=== PATIENT | female | born 1970 | race Caucasian/White ===

== ENCOUNTER 2018-07-22 10:18 | Day surgery (SDC) | payer BC ==
[2018-07-19 15:57] VITALS: BMI 34.9
[~2018-07-22 10:18] MED LIST: LACTATED RINGERS 1,000 ML IV SCH; LIDOCAINE 1% 20 ML VIAL (10MG/ML) FOR IV START INTRADERMA PRN
[2018-07-22 11:40] VITALS: TEMP 97.8
[2018-07-22] MEDS ORDERED: PROPOFOL 10 MG/ML 20 ML VIAL IV ONE (12:16)
[2018-07-22] MEDS ORDERED: LIDOCAINE 1% INJ 10MG/ML (20 ML MDV) ONE (12:16)
--- NOTE | 2018-07-22 12:35 | P.PCN ---
Date of Procedure: 07/22/18 Procedure(s) Performed: BRIEF HISTORY: Patient is a 48-year-old pleasant female, scheduled for an elective colonoscopy as a part of screening for colorectal neoplasia. PROCEDURE PERFORMED: Colonoscopy with snare polypectomy. PREOPERATIVE DIAGNOSIS: Screening for colon cancer. IV sedation per Anesthesia. PROCEDURE: After informed consent was obtained, the patient, was brought into the endoscopy unit. IV sedation was administered by Anesthesia under continuous monitoring. Digital rectal examination was normal. Initially the Olympus CF- 160 flexible video colonoscope was then inserted in the rectum, gradually advanced into the cecum without any difficulty. Careful examination was performed as the scope was gradually being withdrawn. Ileocecal valve and the appendiceal orifice were visualized and appeared normal. Prep was excellent. Mucosa of the cecum, ascending colon, transverse colon, descending colon appeared normal. In the sigmoid colon there was a 1 cm pedunculated polyp removed by snare polypectomy. The rest of the sigmoid colon, and rectum appeared normal. Scattered sigmoid diverticulosis seen. Retroflexion was performed in the rectum and no lesions were seen. The patient tolerated the procedure well. IMPRESSION: 1 cm pedunculated sigmoid colon polyp status post polypectomy Scattered sigmoid diverticulosis RECOMMENDATIONS: Findings of this examination were discussed with the patient as well his family she was advised to follow with the biopsy results. If the biopsy shows an adenoma she can have a repeat colonoscopy in 3 years..
[2018-07-22 13:10] VITALS: BP 115/76; PULSE 80; RESP 18
== END 2018-07-22 13:25 | disposition home or self-care (01) ==
LOC: ORWHC2ENDO 10:18
PROVIDERS: ATTEND Internal Medicine Gastroenterology
DX: Z12.11 Encounter for screening for malignant neoplasm of colon (principal); D12.5 Benign neoplasm of sigmoid colon; K57.30 Diverticulosis of large intestine without perforation or abscess without bleeding; J45.909 Unspecified asthma, uncomplicated; Z79.51 Long term (current) use of inhaled steroids; Z79.899 Other long term (current) drug therapy; Z91.040 Latex allergy status; Z91.09 Other allergy status, other than to drugs and biological substances
CPT/HCPCS: 81025; 88305; 45385; J2001; J2704

== ENCOUNTER → 2018-08-09 | Outpatient (CLI) | payer BC ==
[2018-08-09 13:40] LABS: Basophils % (A) 1 %; Eosinophils # (A) 0.2 k/uL (0-0.7); Eosinophils % (A) 3 %; HGB 11.2 gm/dL (11.4-16.0); Hypochromasia Marked; Lymphocytes # (A) 2.2 k/uL (1.0-4.8); Lymphocytes % (A) 31 %; MCH 25.6 pg (25.0-35.0); MCHC 30.2 g/dL (31.0-37.0); MCV 84.7 fL (80.0-100.0); Mean Platelet Volume 6.6; Monocytes # (A) 0.4 k/uL (0-1.0); Monocytes % (A) 6 %; Neutrophils # (A) 4.1 k/uL (1.3-7.7); Neutrophils % (A) 57 %; Platelet Count 294 k/uL (150-450); RBC 4.37 m/uL (3.80-5.40); RDW 14.7 % (11.5-15.5); WBC 7.1 k/uL (3.8-10.6)
== END | disposition home or self-care (01) ==
LOC: LABPAT 12:48
PROVIDERS: ATTEND Obstetrics & Gynecology Obstetrics
DX: Z01.812 Encounter for preprocedural laboratory examination (principal); N92.0 Excessive and frequent menstruation with regular cycle
CPT/HCPCS: 36415; 85025

== ENCOUNTER → 2018-08-16 | Day surgery (SDC) | payer BC ==
[2018-08-10 09:58] VITALS: BMI 34.3
[~2018-08-16] MED LIST changes: +DEXAMETHASONE SOD PHOS (MDV) 100 MG/10 ML VIAL IVP ONE; +KETOROLAC 30 MG/ML 1 ML VIAL ONE; +LACTATED RINGERS 1,000 ML IV ONE; -LACTATED RINGERS 1,000 ML IV SCH; +LIDOCAINE 1% 20 ML VIAL (10MG/ML) FOR IV START INTRADERMA ONE; -LIDOCAINE 1% 20 ML VIAL (10MG/ML) FOR IV START INTRADERMA PRN; +LIDOCAINE 1% INJ 10MG/ML (20 ML MDV) ONE; +MIDAZOLAM 2 MG/2 ML VIAL ONE; +ONDANSETRON 4 MG/2 ML VIAL IVP ONE; +PROPOFOL 10 MG/ML 20 ML VIAL IV ONE; +Pre Op ABX Message 1 EACH MISC MISCELLANE ONE; +SILVER NITRATE APPLICATOR 1 EACH STICK..EA. TOPICAL ONE; +fentaNYL (PF) 50 MCG/ML 2 ML AMP ONE
--- NOTE | 2018-08-16 11:05 | P.OP ---
Date of Procedure: 08/16/18 Preoperative Diagnosis: Heavy menstrual bleeding Postoperative Diagnosis: Same Procedure(s) Performed: Dilation and curettage, hysteroscopy, endometrial ablation with NovaSure Anesthesia: MAC Surgeon: Rochelle Bloom Estimated Blood Loss (ml): 5 IV fluids (ml): 600 Urine output (ml): 75 Pathology: other (Endometrial curettings) Condition: stable Disposition: PACU Indications for Procedure: Heavy menstrual bleeding with failed medical management. Operative Findings: Proliferative endometrium Description of Procedure: Patient is seen in the preoperative area and informed consent is obtained. Risks were reviewed including but not limited to infection, bleeding, damage to pelvic organs, uterine perforation. Patient states understanding and wished to proceed. Patient was taken to the operating suite where general anesthesia was obtained without difficulty by the anesthesia department. She was prepped and draped in normal sterile fashion in the dorsal lithotomy position. Latex free catheter was then used to drain the bladder clear yellow urine. A weighted speculum was placed in the posterior vaginal vault and anterior lip of the cervix is visualized grasped with a single-tooth tenaculum. The endocervical canal was then dilated and hysteroscope was placed through the cervix and toward the endometrial cavity the above-noted findings were visualized. A sharp curettage was then performed after the hysteroscope was removed and the specimen sent to pathology for analysis. The NovaSure device was then opened and set to the uterine measurements a length of 4.50 with a 4.3 a power of 106 time of 84 seconds. The cycle was completed after the cavity assessment was passed. Afterwards the NovaSure was removed without difficulty and the single-tooth tenaculum was taken off of the anterior lip of the cervix. Hemostasis was appreciated. All instruments were removed from the patient's vaginal vault Patient tolerated procedure well and all counts are correct 2, patient was taken the recovery room awake in stable condition
[2018-08-16 11:16] VITALS: RESP 16; TEMP 97.4
[2018-08-16] MEDS: HYDROmorphone 1 MG/ML 1 ML SYRINGE IVP ONE ×2 (11:50→11:55)
[2018-08-16 12:19] VITALS: PULSE 71
[2018-08-16 13:25] VITALS: BP 135/86
== END | disposition home or self-care (01) ==
LOC: OR 09:09
PROVIDERS: ATTEND Obstetrics & Gynecology Obstetrics
DX: N84.1 Polyp of cervix uteri (principal); J45.909 Unspecified asthma, uncomplicated; Z79.51 Long term (current) use of inhaled steroids; Z79.899 Other long term (current) drug therapy; Z91.040 Latex allergy status
CPT/HCPCS: 81025; 88305; 58563; J2250; J2405; J2001; J3010; J1885; J1170; J1100; J2704

== ENCOUNTER → 2019-06-06 | Outpatient (CLI) | payer BC ==
--- NOTE | 2019-06-08 12:23 | MM ---
Reason for exam: screening (asymptomatic). History: Took hormonal contraceptives for 10 years. Physical Findings: A clinical breast exam by your physician is recommended on an annual basis and results should be correlated with mammographic findings. MG Screening Mammo w CAD Bilateral CC and MLO view(s) were taken. The breast tissue is heterogeneously dense. This may lower the sensitivity of mammography. No significant changes when compared with prior studies. ASSESSMENT: Benign, BI-RAD 2 RECOMMENDATION: Routine screening mammogram of both breasts in 1 year.
== END | disposition home or self-care (01) ==
LOC: RADMAMWWP 16:22
PROVIDERS: ATTEND Internal Medicine
DX: Z12.31 Encounter for screening mammogram for malignant neoplasm of breast (principal)
CPT/HCPCS: 77067

== ENCOUNTER → 2020-07-04 | Outpatient (CLI) | payer BC ==
--- NOTE | 2020-07-05 08:03 | US ---
EXAMINATION TYPE: US thyroid st tissue head/neck DATE OF EXAM: 07/04/2020 COMPARISON: NONE CLINICAL HISTORY: R59.0 Localized enlarged lymph nodes. Enlarged lymph nodes. Attention thyroid per o rder. GLAND SIZE: Right Lobe: 4.2 x 1.7 x 1.6 cm Overall Parenchyma: homogenous Left Lobe: 4.7 x 1.5 x 1.5 cm Overall Parenchyma: heterogeneous Isthmus Thickness: 0.29 cm NODULES RIGHT: # of nodules measured on right: 0 LEFT: # of nodules measured on left: 2 1. 0.5 X 0.4 x 0.3 cm hypoechoic Heterogeneous nodule at the upper pole with well-defined margins. This nodule is wider than tall and shows no intranodular vascularity. Prior size: No prior 2. 0.4 X 0.4 x 0.2 cm hypoechoic heterogeneous nodule at the mid pole with well-defined margins. Th is nodule is wider than tall and shows minimal peripheral vascularity. Nodules are spongiform. Prior size: No prior ISTHMUS: # of nodules measured in the isthmus: 0 Hypoechoic area with hyperechoic center and vascular hilum seen within the left neck measurin.1 x 0.8 x 0.3 cm. Consistent with benign lymph node IMPRESSION: Benign thyroid nodule, TR 1. Benign-appearing left neck node.
== END | disposition home or self-care (01) ==
LOC: RADUSWWP 16:51
PROVIDERS: ATTEND Family Medicine
DX: E04.1 Nontoxic single thyroid nodule (principal)
CPT/HCPCS: 76536

== ENCOUNTER → 2020-12-05 | Outpatient (CLI) | payer BC ==
--- NOTE | 2020-12-10 11:32 | MM ---
Reason for exam: screening (asymptomatic). Last mammogram was performed 1 year and 6 months ago. History: Took hormonal contraceptives for 10 years. Physical Findings: A clinical breast exam by your physician is recommended on an annual basis and results should be correlated with mammographic findings. MG 3D Screening Mammo W/Cad Bilateral CC and MLO view(s) were taken. Prior study comparison: July 01, 2018, mammogram, performed at [facility]. The breast tissue is heterogeneously dense. This may lower the sensitivity of mammography. No significant changes when compared with prior studies. ASSESSMENT: Benign, BI-RAD 2 RECOMMENDATION: Routine screening mammogram of both breasts in 1 year.
== END | disposition home or self-care (01) ==
LOC: RADMAMWWP 15:01
PROVIDERS: ATTEND Family Medicine
DX: Z12.31 Encounter for screening mammogram for malignant neoplasm of breast (principal)
CPT/HCPCS: 77063; 77067

== ENCOUNTER 2022-08-18 07:04 | Day surgery (SDC) | payer BC ==
[2022-08-17 10:03] VITALS: BMI 34.0
[~2022-08-18 07:04] MED LIST changes: -DEXAMETHASONE SOD PHOS (MDV) 100 MG/10 ML VIAL IVP ONE; -KETOROLAC 30 MG/ML 1 ML VIAL ONE; -LACTATED RINGERS 1,000 ML IV ONE; +LACTATED RINGERS 1,000 ML IV SCH; +LIDOCAINE 1% (10MG/ML) FOR IV START INTRADERMA PRN; -LIDOCAINE 1% 20 ML VIAL (10MG/ML) FOR IV START INTRADERMA ONE; -LIDOCAINE 1% INJ 10MG/ML (20 ML MDV) ONE; -MIDAZOLAM 2 MG/2 ML VIAL ONE; -ONDANSETRON 4 MG/2 ML VIAL IVP ONE; -PROPOFOL 10 MG/ML 20 ML VIAL IV ONE; -Pre Op ABX Message 1 EACH MISC MISCELLANE ONE; -SILVER NITRATE APPLICATOR 1 EACH STICK..EA. TOPICAL ONE; -fentaNYL (PF) 50 MCG/ML 2 ML AMP ONE
[2022-08-18 07:31] VITALS: TEMP 97.8
[2022-08-18] MEDS ORDERED: PROPOFOL 10 MG/ML 20 ML VIAL IV ONE (08:42)
--- NOTE | 2022-08-18 09:08 | P.PCN ---
Date of Procedure: 08/18/22 Procedure(s) Performed: BRIEF HISTORY: Patient is a 52-year-old pleasant white female scheduled for an elective colonoscopy as a part of evaluation of prior history of colon polyps. PROCEDURE PERFORMED: Colonoscopy with biopsy. PREOPERATIVE DIAGNOSIS: History of colon polyps. IV sedation per Anesthesia. PROCEDURE: After informed consent was obtained, the patient, was brought into the endoscopy unit. IV sedation was administered by Anesthesia under continuous monitoring. Digital rectal examination was normal. Initially the Olympus CF-160 flexible video colonoscope was then inserted in the rectum, gradually advanced into the cecum without any difficulty. Careful examination was performed as the scope was gradually being withdrawn. Ileocecal valve and the appendiceal orifice were visualized and appeared normal. Prep was excellent. Mucosa of the cecum, ascending colon, appeared normal. The transverse colon there was a 3 mm polyp that was removed by cold biopsy. Rest of the transverse colon, descending colon, sigmoid colon, and rectum appeared normal. Scattered sigmoid diverticulosis seen. Retroflexion was performed in the rectum and no lesions were seen. The patient tolerated the procedure well. IMPRESSION: 3 mm polyp in the transverse colon status post cold biopsy Scattered sigmoid diverticulosis RECOMMENDATIONS: Findings of this examination were discussed with the patient as well as her family. She was advised to follow with the biopsy results. If the biopsy results adenoma she can have a repeat colonoscopy in 5 years..
[2022-08-18 09:27] VITALS: BP 121/76; PULSE 70; RESP 18
== END 2022-08-18 09:57 | disposition home or self-care (01) ==
LOC: ORWHC2ENDO 07:04
PROVIDERS: ATTEND Internal Medicine Gastroenterology
DX: Z12.11 Encounter for screening for malignant neoplasm of colon (principal); D12.3 Benign neoplasm of transverse colon; J45.909 Unspecified asthma, uncomplicated; K76.0 Fatty (change of) liver, not elsewhere classified; L30.9 Dermatitis, unspecified; K91.0 Vomiting following gastrointestinal surgery; Z86.010 Personal history of colon polyps; Z91.040 Latex allergy status; Z79.899 Other long term (current) drug therapy; Z91.048 Other nonmedicinal substance allergy status
CPT/HCPCS: 81025; 88305; 45380; J2704

== ENCOUNTER → 2023-02-05 | Outpatient (CLI) | payer BC ==
--- NOTE | 2023-02-05 14:23 | US ---
EXAMINATION TYPE: US thyroid st tissue head/neck DATE OF EXAM: 02/05/2023 COMPARISON: 07/14 CT CLINICAL HISTORY: E04.1 THYROID NODULES. follow up on known nodules GLAND SIZE: Right Lobe: 4.2 x 1.5 x 1.8 cm Overall Parenchyma: homogenous Left Lobe: 4.0 x 1.2 x 1.6 cm Overall Parenchyma: homogeneous Isthmus Thickness: 0.3 cm NODULES RIGHT: # of nodules measured on right: 0 LEFT: # of nodules measured on left: 2 1. 0.5 X 0.3 x 0.4 cm, mid lateral, Prior size: 0.5 x 0.4 x 0.3 cm TIRADS Score: 4 TIRADS Category 4: Moderately Suspicious Composition: Solid or almost completely solid (2 points). Echogenicity: Hypoechoic (2 points). Shape: Wider than tall (0 points). Margin: Smooth (0 points). Echogenic foci: None or large comet-tail artifacts (0 points) Recommendation: If >1.5cm: FNA; If >1cm: Follow up at 1,2, 3,5 years 2. 0.4 X 0.2 x 0.3 cm, mid to lower lateral Prior size: 0.4 x 0.4 x 0.2 cm TIRADS Score: 4 TIRADS Category 4: Moderately Suspicious Composition: Solid or almost completely solid (2 points). Echogenicity: Hypoechoic (2 points). Shape: Wider than tall (0 points). Margin: Smooth (0 points). Echogenic foci: None or large comet-tail artifacts (0 points) Recommendation: If >1.5cm: FNA; If >1cm: Follow up at 1,2, 3,5 years ISTHMUS: # of nodules measured in the isthmus: 0 Bilateral neck scanned, no evidence of lymphadenopathy. IMPRESSION: Subcentimeter left thyroid nodules not significantly changed from 2020.
== END | disposition home or self-care (01) ==
LOC: RADUSWWP 13:35
PROVIDERS: ATTEND Family Medicine
DX: E04.2 Nontoxic multinodular goiter (principal)
CPT/HCPCS: 76536

== ENCOUNTER → 2024-04-07 | Outpatient (CLI) | payer OTHER ==
[2024-04-07 10:27] LABS: Basophils # (A) 0.05 X 10*3/uL (0.00-0.10); Basophils % (A) 0.9 %; Eosinophils % (A) 3.6 %; HCT 46.8 % (37.2-46.3); HGB 14.9 g/dL (12.0-15.0); Lymphocytes # (A) 2.02 X 10*3/uL (0.90-5.00); Lymphocytes % (A) 36.5 %; MCH 29.6 pg (27.0-32.0); MCHC 31.8 g/dL (32.0-37.0); Mean Platelet Volume 9.8 FL (9.5-12.2); Monocytes # (A) 0.46 X 10*3/uL (0.20-1.00); Monocytes % (A) 8.3 %; NRBC Per 100 WBC 0 X 10*3/uL (0.00-0.01); Neutrophils # (A) 2.79 X 10*3/uL (1.80-7.70); Neutrophils % (A) 50.5 %; Platelet Count 207 X 10*3/uL (140-440); RBC 5.03 X 10*6/uL (4.10-5.20); RDW 12.4 % (11.5-14.5); WBC 5.53 X 10*3/uL (4.50-10.00)
[2024-04-07 10:55] LABS: ALT 56 U/L (8-44); AST 37 U/L (13-35); Albumin 4.2 g/dL (3.8-4.9); Albumin/Globulin Ratio 1.68 Ratio (1.60-3.17); Alkaline Phosphatase 106 U/L (41-126); BUN/Creat Ratio 16.17 Ratio (12.00-20.00); Blood Urea Nitrogen 9.7 mg/dL (9.0-27.0); Calcium 9.2 mg/dL (8.7-10.3); Carbon Dioxide 21.7 mmol/L (21.6-31.8); Chloride 104 mmol/L (96-109); Chol/HDL Ratio 4.67 Ratio; Globulin 2.5 g/dL (1.6-3.3); Glucose 152 mg/dL (70-110); LDL Cholesterol,Calculated 136.6 mg/dL (0.0-131.0); Potassium 4.1 mmol/L (3.5-5.5); Sodium 138 mmol/L (135-145); T4, Free (Free Thyroxine) 1.25 ng/dL (0.80-1.80); Total Bilirubin 0.6 mg/dL (0.3-1.2); Total Protein 6.7 g/dL (6.2-8.2)
== END | disposition home or self-care (01) ==
LOC: LABWHC1 06:57
PROVIDERS: ATTEND Nurse Practitioner Family
DX: Z00.00 Encounter for general adult medical examination without abnormal findings (principal); E78.5 Hyperlipidemia, unspecified; E04.1 Nontoxic single thyroid nodule; D45 Polycythemia vera; R94.5 Abnormal results of liver function studies
CPT/HCPCS: 36415; 80053; 80061; 82306; 82607; 82746; 83036; 84439; 84443; 85025